=== PATIENT | female | born 1960 | race Two or more races ===

== ENCOUNTER 2017-06-03 10:45 | Outpatient (CLI) | payer OTHER ==
[~2017-06-03 10:45] MED LIST: AMOX1TAB12 PO; GILTUSS TR TAB1 EACH PO; KETO10TA2 PO; LANTUS100 U/ML; LIPITOR20 MG; METFORMIN HYDR100 GM; SYNTHROID112 MCG; ZITHROMAX200 MG PO; ZYRTEC10 MG PO
== END 2017-06-03 10:50 | disposition home or self-care (01) ==
LOC: MAMO-SONO 10:45
DX: Z12.31 Encounter for screening mammogram for malignant neoplasm of breast (principal); N60.11 Diffuse cystic mastopathy of right breast; N60.12 Diffuse cystic mastopathy of left breast

== ENCOUNTER 2019-10-16 09:44 | Outpatient (CLI) | payer OTHER | END 2019-10-16 09:46 | disposition home or self-care (01) | LOC: MAMO-SONO 09:44 | PROVIDERS: ATTEND Internal Medicine Geriatric Medicine | DX: Z12.31 Encounter for screening mammogram for malignant neoplasm of breast (principal); C50.919 Malignant neoplasm of unspecified site of unspecified female breast ==

== ENCOUNTER 2019-11-19 08:33 | Outpatient (CLI) | payer OTHER | END 2019-11-19 08:43 | disposition home or self-care (01) | LOC: SONOGRAMA 08:33 → MAMO-SONO 09:45 | PROVIDERS: ATTEND Specialist | DX: N84.0 Polyp of corpus uteri (principal); N95.0 Postmenopausal bleeding ==

== ENCOUNTER 2020-01-26 09:45 | Emergency (ER) | payer OTHER ==
[~2020-01-26] VITALS: Ht 149.9 cm; Wt 86.2 kg
== END 2020-01-26 15:50 | disposition home or self-care (01) ==
LOC: ER 09:45
DX: U07.1 COVID-19 (principal); J12.89 Other viral pneumonia; B34.9 Viral infection, unspecified

== ENCOUNTER 2020-05-04 11:51 | Outpatient (CLI) | payer OTHER | END 2020-05-04 12:03 | disposition home or self-care (01) | LOC: SONOGRAMA 11:51 | PROVIDERS: ATTEND Specialist | DX: N84.0 Polyp of corpus uteri (principal) ==

== ENCOUNTER 2021-07-04 08:01 | Outpatient (CLI) | payer OTHER | END 2021-07-04 08:14 | disposition home or self-care (01) | LOC: MAMO-SONO 08:01 | PROVIDERS: ATTEND Internal Medicine Geriatric Medicine | DX: C50.919 Malignant neoplasm of unspecified site of unspecified female breast (principal); N63 Unspecified lump in breast; N64.4 Mastodynia; N60.12 Diffuse cystic mastopathy of left breast; N60.11 Diffuse cystic mastopathy of right breast; Z12.31 Encounter for screening mammogram for malignant neoplasm of breast ==

== ENCOUNTER 2021-07-13 14:03 | Outpatient (CLI) | payer OTHER | END 2021-07-13 14:18 | disposition home or self-care (01) | LOC: SONOGRAMA 14:03 | PROVIDERS: ATTEND Orthopaedic Surgery | DX: M75.122 Complete rotator cuff tear or rupture of left shoulder, not specified as traumatic (principal); M25.512 Pain in left shoulder ==

== ENCOUNTER 2021-08-10 10:26 | Outpatient (CLI) | payer OTHER | END 2021-08-10 10:27 | disposition home or self-care (01) | LOC: RAD 10:26 | PROVIDERS: ATTEND Orthopaedic Surgery | DX: R07.9 Chest pain, unspecified (principal) ==

== ENCOUNTER 2022-12-26 13:38 | Outpatient (CLI) | payer OTHER | END 2022-12-26 13:45 | disposition home or self-care (01) | LOC: NUCLEAR 13:38 | PROVIDERS: ATTEND Internal Medicine Geriatric Medicine | DX: M81.0 Age-related osteoporosis without current pathological fracture (principal) ==

== ENCOUNTER 2023-12-16 09:02 | Outpatient (CLI) | payer OTHER | END 2023-12-16 09:25 | disposition home or self-care (01) | LOC: MAMO-SONO 09:02 | PROVIDERS: ATTEND Obstetrics & Gynecology | DX: N63 Unspecified lump in breast (principal); N64.59 Other signs and symptoms in breast; N64.9 Disorder of breast, unspecified; N94.0 Mittelschmerz; R10.2 Pelvic and perineal pain; N94.89 Other specified conditions associated with female genital organs and menstrual cycle ==

== ENCOUNTER 2024-01-17 06:36 | Outpatient (CLI) | payer OTHER ==
[2024-01-17 07:20] LABS: HEMATOCRIT 43.2 % (36.0-45.00); HEMOGLOBIN 14.4 g/dL (12.0-15.00); MEAN CELL VOLUME 84.1 fL (80.00-100.00); MEAN CORPUSCULAR HEMOGLOBIN 27.9 pg (27.00-32.0); MEAN CORPUSCULAR HGB CONC 33.2 g/dl (32.0-36.0); PLATELET COUNT 289 K/uL (150-450); RED BLOOD COUNT 5.14 M/uL (4.00-6.00); RED CELL DISTRIBUTION WIDTH 14.9 % (11.5-14.5)
[2024-01-17 07:25] LABS: PH,URINE 6.5 (5.0-8.0); URINE APPEARANCE Clear; URINE BILIRRUBIN Negative (NEGATIVE); URINE BLOOD Negative; URINE COLOR Yellow; URINE KETONE Trace (NEGATIVE); URINE LEUKOCYTE Negative; URINE NITRATE Negative; URINE PROTEIN Negative (NEGATIVE); URINE UROBILINOGEN 0.2 E.U./dl
[2024-01-17 07:30] LABS: URINE BACTERIA 8.8 uL (0.0-1933)
[2024-01-17 07:31] LABS: URINE EPITHELIAL CELLS 0.4 uL (0.0-38.8); URINE GLUCOSE >=1000 MG/DL (NEGATIVE); URINE RBC 0.7 uL (0.0-20.8); URINE WBC 1.3 uL (0.0-23.2)
[2024-01-17 08:00] LABS: INR 0.94; PARTIAL THROMBOPLASTIN TIME 26.3 SECONDS (22.0-34.0); PROTHROMBIN TIME 10.3 SECONDS (9.0-11.5)
[2024-01-17 08:11] LABS: ALBUMIN 3.8 gm/dL (3.4-5.0); BILIRUBIN TOTAL 0.36 mg/dL (0.3-1.2); CALCIUM 9.4 mg/dL (8.5-10.1); CREATININE SERUM 0.54 mg/dL (0.55-1.02); GFR 114.77; GLOBULINA 3.1 G/DL (2.4-3.5); POTASSIUM 4.17 mEq/L (3.5-5.1); TOTAL PROTEIN 6.9 gm/dL (6.4-8.2)
[2024-01-23] MEDS ORDERED: PREVACID30 MG PO (09:39)
[2024-01-23] MEDS ORDERED: NORVASC5 MG PO (09:40)
[2024-01-23] MEDS ORDERED: SYNJARDY 12.5-1 EACH PO (09:40)
[2024-01-23] MEDS ORDERED: TOPROL XL50 M1 PO (09:40)
[2024-01-23] MEDS ORDERED: MOUNJARO10 MG/0.5 (09:41)
== END 2024-01-17 06:55 | disposition home or self-care (01) ==
LOC: LAB 06:36
PROVIDERS: ATTEND Obstetrics & Gynecology
DX: Z01.818 Encounter for other preprocedural examination (principal); Z00.00 Encounter for general adult medical examination without abnormal findings; I10 Essential (primary) hypertension; E03.9 Hypothyroidism, unspecified; E78.00 Pure hypercholesterolemia, unspecified; Z20.828 Contact with and (suspected) exposure to other viral communicable diseases

== ENCOUNTER 2024-01-27 05:12 | Day surgery (SDC) | payer OTHER ==
[~2024-01-27 05:12] MED LIST changes: +MOUNJARO10 MG/0.5; +NORVASC5 MG PO; +PREVACID30 MG PO; +SYNJARDY 12.5-1 EACH PO; +TOPROL XL50 M1 PO
[2024-01-27] MEDS ORDERED: POVIDONE-IODINE 118 ML BOTT TOP ONE (14:20)
[2024-01-27] MEDS ORDERED: ONDANSETRON HCL 2 MG/ML VIAL IV STA (15:34)
== END 2024-01-27 19:15 | disposition home or self-care (01) ==
LOC: CIR.AMB 05:12
PROVIDERS: ATTEND Obstetrics & Gynecology
DX: N85.00 Endometrial hyperplasia, unspecified (principal); N95.0 Postmenopausal bleeding; E11.9 Type 2 diabetes mellitus without complications; I10 Essential (primary) hypertension

== ENCOUNTER 2024-12-17 09:09 | Outpatient (CLI) | payer OTHER | END 2024-12-17 09:14 | disposition home or self-care (01) | LOC: MAMO-SONO 09:09 | PROVIDERS: ATTEND Internal Medicine Geriatric Medicine | DX: N63.0 Unspecified lump in unspecified breast (principal); N64.4 Mastodynia; N60.12 Diffuse cystic mastopathy of left breast; N60.11 Diffuse cystic mastopathy of right breast; C50.919 Malignant neoplasm of unspecified site of unspecified female breast; Z12.31 Encounter for screening mammogram for malignant neoplasm of breast ==